=== PATIENT | female | born 2000 | race African-American/Black ===

== ENCOUNTER → 2023-11-06 11:05 | Outpatient (REF) | payer OTHER, SELFPAY ==
[2023-11-06 19:06] LABS: Hepatitis B Surface Antibody Positive
[2023-11-06 20:36] LABS: Rubella Positive
== END ==
LOC: OHS 11:05
PROVIDERS: ATTENDING PHYSICIAN Nurse Practitioner Family
DX: Z23 Encounter for immunization (principal)
CPT/HCPCS: 36415; 86480; 86706; 86735; 86762; 86765; 86787